=== PATIENT | male | born 1960 | race African-American/Black ===

== ENCOUNTER 2020-10-13 09:11 | Outpatient (CLI) | payer BC | END 2020-10-13 09:12 | disposition home or self-care (01) | LOC: CSHMRI 09:11 | PROVIDERS: ATTEND Urology | DX: N40.1 Benign prostatic hyperplasia with lower urinary tract symptoms (principal); C61 Malignant neoplasm of prostate; R59.0 Localized enlarged lymph nodes | CPT/HCPCS: 72195 ==

== ENCOUNTER 2021-12-28 17:12 | Observation (INO) | payer BC ==
[~2021-12-28 17:12] MED LIST: Iopamidol 370 76% 100 ML VIAL ONE
[2021-12-28] MEDS ORDERED: hydrALAZINE 20 MG/ML VIAL SLOW IVP PRN (17:14)
[2021-12-28] MEDS ORDERED: Senokot S 8.6-50 MG TAB PO PRN (17:18)
[2021-12-28] MEDS ORDERED: Ondansetron PF 4 MG/2 ML Vial IVP PRN (17:18)
[2021-12-28] MEDS ORDERED: Ondansetron ODT 4 MG TAB PO PRN (17:18)
[2021-12-28] MEDS ORDERED: Acetaminophen 325 MG TAB PO PRN (17:18)
[2021-12-28] MEDS: Famotidine 20 MG TAB PO SCH (22:06)
[2021-12-28] MEDS: Atorvastatin Calcium 40 MG TAB PO SCH (22:06)
[2021-12-29 04:00] LABS: #Monocytes 0.8 10x3/uL (0.0-1.1); #Neutrophils 9.6 10x3/uL (1.5-8.4); %Basophils 0.1 % (0.0-2.0); %Eosinophils 0.1 % (0.0-6.0); %Lymphocytes 3.4 % (18.0-47.0); %Monocytes 7.6 % (0.0-10.0); %Neutrophils 88.2 % (40.0-75.0); Hemoglobin 10.5 g/dL (13.5-17.5); Mean Corpuscular HGB CONC 32.3 g/dL (32.0-36.0); Mean Corpuscular Hemoglobin 22.5 pg (27.0-33.0); Mean Corpuscular Volume 69.6 fl (81.2-95.1); Mean Platelet Volume 10.5 fl (7.4-10.4); Platelet Count 176 10x3/uL (150-450); RBC Distribution Width 15.9 % (11.5-14.5); Red Blood Cell (RBC) Count 4.67 10x6/uL (4.32-5.72); White Blood Cell (WBC) Count 10.8 10x3/uL (3.5-10.5)
[2021-12-29 04:24] LABS: Anion Gap 15 mmol/L (10-20); BUN (Urea Nitrogen) 15 mg/dL (8.4-25.7); Calc. Creatinine Clearance 320 mL/min (70-130); Calcium 8.4 mg/dL (7.8-10.44); Carbon Dioxide 24 mmol/L (22-29); Cardiac Risk 4.7 (Less than 4.5); Chloride 95 mmol/L (98-107); Cholesterol 108 mg/dl (< 200 Desired); Glucose 96 mg/dL (70-105); HDL Cholesterol 23 mg/dL (>60 Neg Risk); LDL Cholesterol, Calculated 66 mg/dL; Potassium 3.4 mmol/L (3.5-5.1); Sodium 131 mmol/L (136-145); Triglycerides 96 mg/dL (Less than 150)
[2021-12-29 04:32] LABS: Anisocytosis SLIGHT = 6-15 cells (100X) (0-5/hpf); Platelet Morphology Comment PLT clumps seen-ADEQ
[2021-12-29 04:33] LABS: Hypochromia SLIGHT = 6-15 cells (100X) (0-5/hpf); Microcytosis SLIGHT = 6-15 cells (100X) (0-5/hpf); Target Cells SLIGHT = 2-5 cells (100X) (0-1/hpf)
[2021-12-29 04:48] LABS: Syphilis Antibody Nonreactive (Nonreactive); Syphilis Antibody Index 0.05 S/CO (<1.00 Non-Reactive)
[2021-12-29] MEDS ORDERED: Iopamidol 370 76% 100 ML VIAL ONE (08:00)
[2021-12-29] MEDS: NS 0.9% w/ 20 MEQ KCL 1,000 ML/1,000 ML BAG IV SCH ×2 (08:56→21:06)
[2021-12-29] MEDS ORDERED: Meclizine HCl 25 MG TAB PO SCH (09:00)
[2021-12-29] MEDS: Famotidine 20 MG TAB PO SCH ×2 (09:05→21:02)
[2021-12-29] MEDS: Enoxaparin Sodium 40 MG/0.4 ML SYRINGE SC SCH (09:05)
[2021-12-29] MEDS: Aspirin 81 mg Enteric Coated Tablet PO SCH (09:05)
[2021-12-29 09:07] VITALS: BMI 36.6
[2021-12-29] MEDS: Meclizine HCl 25 MG TAB PO SCH ×2 (12:06→21:05)
[2021-12-29 14:50] LABS: Hemoglobin A1c 5.7 % (4.0-6.0)
[2021-12-29 18:07] LABS: ANA Symphony (Qualitative) POSITIVE (Negative); CENP IgG Antibody 0.6 EliAU/mL (<7 Negative); Jo-1 IgG Antibody 0.3 EliAU/mL (<7 Negative); RNP70 IgG Antibody 0.3 EliAU/mL (<7 Negative); SSB/La IgG Antibody 0.5 EliAU/mL (<7 Negative); Scleroderma-70 IgG Antibody 0.8 EliAU/mL (<7 Negative); Smith D IgG Antibody 2.4 EliAU/mL (<7 Negative); dsDNA IgG Antibody 1.1 IU/mL (<10 Negative)
[2021-12-29] MEDS: Atorvastatin Calcium 40 MG TAB PO SCH (21:02)
[2021-12-30] MEDS: Meclizine HCl 25 MG TAB PO SCH (06:22)
[2021-12-30 08:02] VITALS: BP 133/76; TEMP 98.8
[2021-12-30] MEDS: Aspirin 81 mg Enteric Coated Tablet PO SCH (09:14)
[2021-12-30] MEDS: Enoxaparin Sodium 40 MG/0.4 ML SYRINGE SC SCH (09:14)
[2021-12-30] MEDS: Famotidine 20 MG TAB PO SCH (09:14)
== END 2021-12-30 12:07 | disposition home or self-care (01) ==
LOC: INTOOBSV 17:12 → CSHTELE 17:12
PROVIDERS: ADMIT Family Medicine; ATTEND Family Medicine
DX: R42 Dizziness and giddiness (principal); R11.2 Nausea with vomiting, unspecified; R19.7 Diarrhea, unspecified; R79.89 Other specified abnormal findings of blood chemistry; E11.9 Type 2 diabetes mellitus without complications; I11.9 Hypertensive heart disease without heart failure; E78.5 Hyperlipidemia, unspecified; I08.8 Other rheumatic multiple valve diseases; E66.01 Morbid (severe) obesity due to excess calories; Z68.36 Body mass index [BMI] 36.0-36.9, adult; Z85.46 Personal history of malignant neoplasm of prostate; Z79.2 Long term (current) use of antibiotics; Z79.899 Other long term (current) drug therapy
CPT/HCPCS: 36415; 70496; 70498; 70551; 71275; 80048; 80061; 83036; 85025; 85379; 86038; 86225; 86235; 86780; 93306; 93970; 96372; G0378; J1650; J3480; Q9967

== ENCOUNTER 2025-05-18 07:49 | Emergency (ER) | payer BC ==
[2025-05-18 08:49] LABS: #Basophils 0.03 10x3/uL (0.0-0.2); #Eosinophils 0.16 10x3/uL (0.0-0.5); #Monocytes 0.39 10x3/uL (0.0-1.1); #Neutrophils 3.14 10x3/uL (1.5-8.4); %Basophils 0.7 % (0.0-2.0); %Eosinophils 3.6 % (0.0-6.0); %Lymphocytes 16.2 % (18.0-47.0); %Monocytes 8.8 % (0.0-10.0); %Neutrophils 70.5 % (40.0-75.0); Hematocrit 43.0 % (38.8-50.0); Hemoglobin 13.2 g/dL (13.5-17.5); Mean Corpuscular Hemoglobin 22.0 pg (27.0-33.0); Mean Corpuscular Volume 71.5 fL (81.2-95.1); Platelet Count 225 10x3/uL (150-450); Red Blood Cell (RBC) Count 6.01 10x6/uL (4.32-5.72); White Blood Cell (WBC) Count 4.45 10x3/uL (3.5-10.5)
[2025-05-18 09:06] LABS: Troponin I Less than 0.010 ng/mL (< 0.028)
[2025-05-18 09:08] LABS: ALT (SGPT) 19 U/L (Less than 45); AST (SGOT) 18 U/L (11-34); Albumin 3.8 g/dL (3.1-4.5); Alkaline Phosphatase 51 U/L (40-110); Anion Gap 14 mmol/L (10-20); BUN (Urea Nitrogen) 16 mg/dL (8.4-25.7); Bilirubin, Total 0.4 mg/dL (0.3-1.2); Calc. Creatinine Clearance 0 mL/min (70-130); Calcium 8.3 mg/dL (7.8-10.44); Carbon Dioxide 21 mmol/L (23-31); Chloride 107 mmol/L (98-107); Globulin 3.3 g/dL (2.4-3.5); Glucose 90 mg/dL (80-115); Magnesium 2.0 mg/dL (1.6-2.6); Potassium 4.3 mmol/L (3.5-5.1); Sodium 138 mmol/L (136-145)
[2025-05-18 09:11] LABS: Microcytosis SLIGHT = 6-15 cells (100X) (0-5/hpf); Ovalocytes SLIGHT = 2-5 cells (100X) (0-1/hpf)
[2025-05-18] MEDS ORDERED: Iopamidol 370 76% 100 ML VIAL ONE (10:52)
== END 2025-05-18 11:55 | disposition home or self-care (01) ==
LOC: CSHERS 07:49
DX: N17.9 Acute kidney failure, unspecified (principal); E86.0 Dehydration; R29.701 NIHSS score 1; I10 Essential (primary) hypertension; Z55.6 Problems related to health literacy
CPT/HCPCS: 70496; 70498; 70551; 80053; 83735; 83880; 84443; 84484; 85025; 93005; Q9967